=== PATIENT | male | born 1970 | race Caucasian/White ===

== ENCOUNTER 2018-10-14 14:46 | Emergency (ER) | payer OTHER ==
[2018-10-14 14:54] VITALS: BMI 28.1
--- NOTE | 2018-10-14 14:55 | PDOC ---
Rapid Medical Evaluation Chief Complaint: Respiratory Time Seen by Provider: 10/14/18 14:48 Medical Evaluation: Allergies Allergy/AdvReac Type Severity Reaction Status Date / Time No Known Allergies Allergy Verified 05/26/15 07:41 10/14/18 14:49 right posterior back PAIN Worse with taking a deep breath since last night. PE: patient alert ox3, slight tenderness to right posterior back. no flank pain. tachycardia A: posterior back chest pain P: labs chest xray ekg patient to the ER for further management of care. 10/14/18 14:54 Discharge Disposition - Diagnosis Pleuritic pain - Referrals - Patient Instructions - Post Discharge Activity
[2018-10-14] MEDS ORDERED: SODIUM CHLORIDE 1,000 ML IV STA (15:12)
[2018-10-14] MEDS ORDERED: ACETAMINOPHEN 1000 MG/100 ML VIAL (NON FORMULARY) IVPB ONE (15:19)
--- NOTE | 2018-10-14 15:19 | PDOC ---
History of Present Illness - General Chief Complaint: Respiratory Stated Complaint: BACK PAIN Time Seen by Provider: 10/14/18 14:48 History Source: Patient - History of Present Illness Timing/Duration: other (yesterday) Severity: moderate Associated Symptoms: denies: chest pain, diaphoresis, fever/chills, nausea/ vomiting, shortness of breath Past History - Past Medical History Allergies/Adverse Reactions: Allergies Allergy/AdvReac Type Severity Reaction Status Date / Time No Known Allergies Allergy Verified 10/14/18 14:49 Home Medications: Ambulatory Orders NK [No Known Home Medication] 10/14/18 COPD: No - Immunization History Immunization Up to Date: No - Suicide/Smoking/Psychosocial Hx Smoking History: Never smoked Hx Alcohol Use: No Drug/Substance Use Hx: No Review of Systems - Review of Systems Constitutional: No: Chills, Fever Respiratory: No: Shortness of Breath Cardiac (ROS): No: Chest Pain ABD/GI: No: Nausea, Vomiting Musculoskeletal: Yes: Back Pain Neurological: No: Numbness, Tingling, Weakness *Physical Exam - Vital Signs Last Vital Signs Temp Pulse Resp BP Pulse Ox 98.5 F 119 H 18 148/85 96 10/14/18 14:50 10/14/18 14:50 10/14/18 14:50 10/14/18 14:50 10/14/18 14:50 - Physical Exam General Appearance: Yes: Appropriately Dressed. No: Apparent Distress HEENT: positive: Normal Voice Neck: positive: Supple Respiratory/Chest: positive: Lungs Clear, Normal Breath Sounds. negative: Respiratory Distress Cardiovascular: positive: S1, S2, Tachycardia Gastrointestinal/Abdominal: positive: Soft. negative: Tender Musculoskeletal: positive: Normal Inspection. negative: CVA Tenderness, CVA Tenderness (L) Extremity: positive: Normal Inspection Integumentary: positive: Dry, Warm Neurologic: positive: Fully Oriented, Alert, Normal Mood/Affect ED Treatment Course - LABORATORY CBC & Chemistry Diagram: 10/14/18 15:47 10/14/18 15:41 Medical Decision Making - Medical Decision Making 10/14/18 15:18 47 yo M, no sig hx, here with non-radiating mid upper back pain that started gradually last night. Unable to describe pain but reports that it is worse with deep inspiration. No chest pain, shortness of breath, palpitations, leg pain or swelling. No cough, fever or chills. Denies any trauma or other obvious inciting factors. Might have had similar pain in the past, but not certain. No obvious risk factor for DVT/PE. No tob hx See exam Upper back pain worse w/ deep inspiration Exam only remarkable for HR of 119 No obvious RF for DVT/PE No CP/SOB to suggest ACS Unlikely dissection No h/o anxiety No trauma -ekg -cxr -labs -pain control -reassess 10/14/18 17:37 EKG w/ sinus tach to 111. Labs including dimer neg. CXR read as weak inspiratory effort w/ bibasilar atelectasis w/weak inspiratory effort but no infiltrates seen. Patient states pain better with tylenol. Rpt HR 90. Will dc with [id number] pain control and to follow-up with PMD if symptoms persist 10/14/18 17:51 *DC/Admit/Observation/Transfer Diagnosis at time of Disposition: Pleuritic pain - Discharge Dispostion Disposition: HOME Condition at time of disposition: Improved - Referrals - Patient Instructions Additional Instructions: The cause of your symptoms are unclear at this time as your EKG, chest x-ray and labs were normal. Take Tylenol for pain as needed and if pain persists, please follow-up with your PMD - Post Discharge Activity
[2018-10-14 15:57] LABS: PH,URINE 7.5 (5.0-8.0); URINE APPEARANCE CLEAR; URINE BILIRUBIN NEGATIVE (NEGATIVE); URINE COLOR YELLOW; URINE GLUCOSE (UA) NEGATIVE (NEGATIVE); URINE KETONE TRACE (NEGATIVE); URINE LEUK ESTERASE NEGATIVE (NEGATIVE); URINE NITRITE NEGATIVE (NEGATIVE); URINE PROTEIN NEGATIVE (NEGATIVE); URINE UROBILINOGEN 0.2 mg/dL (0.2-1.0)
[2018-10-14 15:58] LABS: BASO % 0.6 % (0-2.0); EOS % 0.6 % (0-4.5); HEMATOCRIT 40.7 % (35.4-49); HEMOGLOBIN 13.8 GM/dL (11.7-16.9); LYMPH % 23.4 % (8-40); MCH 29.1 pg (25.7-33.7); MCHC 33.8 g/dl (32.0-35.9); MEAN CELL VOLUME 86.1 fl (80-96); MEAN PLT VOLUME 8.6 fl (7.5-11.1); MONO % 7.3 % (3.8-10.2); NEUT % 68.1 % (42.8-82.8); PLATELET COUNT 280 K/MM3 (134-434); RBC 4.73 M/mm3 (4.00-5.60); RDW 13.5 % (11.9-15.9); WHITE BLOOD COUNT 8.8 K/mm3 (4.0-10.0)
[2018-10-14] MEDS ORDERED: ACETAMINOPHEN INJECTION 100 ML IVPB ONE (15:59)
[2018-10-14 17:01] LABS: INR 1.07 (0.83-1.09); PROTHROMBIN TIME (PATIENT) 12.6 SEC (9.7-13.0)
[2018-10-14 17:11] LABS: ALK PHOS 83 U/L (45-117); ANION GAP 8 MMOL/L (8-16); BILIRUBIN,TOTAL 0.5 mg/dL (0.2-1); BLOOD UREA NITROGEN 11 mg/dL (7-18); CALCIUM 9.2 mg/dL (8.5-10.1); CHLORIDE 103 mmol/L (98-107); CO2 28 mmol/L (21-32); CREATININE 0.9 mg/dL (0.55-1.3); GLUCOSE,RANDOM 111 mg/dL (74-106); POTASSIUM 4.1 mmol/L (3.5-5.1); SGOT/AST 21 U/L (15-37); SGPT/ALT 46 U/L (13-61); SODIUM 139 mmol/L (136-145); TOT PROT 7.7 g/dl (6.4-8.2)
[2018-10-14 17:35] VITALS: BP 119/78; PULSE 90; TEMP 98.2
--- NOTE | 2018-10-15 11:26 | EKG ---
Test Reason : Blood Pressure : / mmHG Vent. Rate : 112 BPM Atrial Rate : 112 BPM P-R Int : 140 ms QRS Dur : 082 ms QT Int : 322 ms P-R-T Axes : 060 -05 032 degrees QTc Int : 439 ms SINUS TACHYCARDIA POSSIBLE LEFT ATRIAL ENLARGEMENT LEFT VENTRICULAR HYPERTROPHY NONSPECIFIC T WAVE ABNORMALITY ABNORMAL ECG NO PREVIOUS ECGS AVAILABLE Confirmed by STEPHAN DESHPANDE MD ([id number]) on 10/15/2018 11:26:37 AM Referred By: Confirmed By:STEPHAN DESHPANDE MD
== END 2018-10-14 19:07 | disposition home or self-care (01) ==
LOC: JER 14:46
PROC: 3E0337Z Introduction of Electrolytic and Water Balance Substance into Peripheral Vein, Percutaneous Approach (ICD-10-PCS; principal; 2018-10-14)
PROC: 3E033NZ Introduction of Analgesics, Hypnotics, Sedatives into Peripheral Vein, Percutaneous Approach (ICD-10-PCS; 2018-10-14)
DX: R07.81 Pleurodynia (principal)
CPT/HCPCS: 36415; 71046-TC-FY; 80053; 81003; 84484; 85025; 85379; 85610; 85730; 93005; 93010; 99283-25; J0131; J7030

== ENCOUNTER 2022-07-01 16:26 | Emergency (ER) | payer OTHER ==
[2022-07-01 17:08] VITALS: RESP 20; BMI 28.8
[2022-07-01] MEDS ORDERED: ACETAMINOPHEN 500 MG TABLET (FP) PO ONE (17:09)
[2022-07-01] MEDS ORDERED: IBUPROFEN 600 MG TABLET (FP) PO ONE (17:21)
[2022-07-01 18:31] VITALS: BP 107/66; PULSE 112; TEMP 100.7
== END 2022-07-01 19:12 | disposition home or self-care (01) ==
LOC: JER 16:26
DX: R05.1 Acute cough (principal); J02.9 Acute pharyngitis, unspecified; R09.81 Nasal congestion; R50.9 Fever, unspecified
CPT/HCPCS: 0241U-QW; 71046-TC-FY; 99284-25